=== PATIENT | female | born 1995 | race Caucasian/White ===

== ENCOUNTER → 2021-04-16 | Outpatient (CLI) | payer OTHER ==
--- NOTE | 2021-04-18 13:01 | ECHOF ---
Referral Reason:R07.9 chest pain MEASUREMENTS -------- HEIGHT: 160.0 cm WEIGHT: 81.6 kg BP: RVIDd: 2.7 cm (< 3.3) IVSd: 1.1 cm (0.6 - 1.1) LVIDd: 3.4 cm (3.9 - 5.3) LVPWd: 1.0 cm (0.6 - 1.1) IVSs: 1.3 cm LVIDs: 2.0 cm LVPWs: 1.7 cm LAESV Index (A-L): 18.48 ml/m Ao Diam: 2.7 cm (2.0 - 3.7) AV Cusp: 2.1 cm (1.5 - 2.6) LA Diam: 4.0 cm (2.7 - 3.8) MV EXCURSION: 17.202 mm (> 18.000) MV EF SLOPE: 80 mm/s (70 - 150) EPSS: 1.0 cm MV E Rubén: 0.88 m/s MV DecT: 197 ms MV A Rubén: 0.41 m/s MV E/A Ratio: 2.18 RAP: 5.00 mmHg RVSP: 22.27 mmHg FINDINGS -------- Sinus rhythm. This was a technically adequate study. The left ventricular size is normal. Left ventricular wall thickness is normal. Overall left vent ricular systolic function is normal with, an EF between 55 - 60 %. The diastolic filling pattern is normal for the age of the patient 10.51. The right ventricle is normal in size. Normal LA size by volume 22+/-6 ml/m2. The right atrial size is normal. Interatrial and interventricular septum intact. The aortic valve is trileaflet and appears structurally normal. There is no evidence of aortic regu rgitation. There is no evidence of aortic stenosis. No mitral regurgitation. Trace tricuspid regurgitation present. There is no evidence of pulmonary hypertension. The right ventricular systolic pressure, as measured by Doppler, is 22.27mmHg. There is no pulmonic regurgitation present. The aortic root size is normal. Normal inferior vena cava with normal inspiratory collapse consistent with estimated right atrial pre ssure of 5 mmHg. There is no pericardial effusion. CONCLUSIONS -------- 1. The left ventricular size is normal. 2. Left ventricular wall thickness is normal. 3. Overall left ventricular systolic function is normal with, an EF between 55 - 60 %. 4. The diastolic filling pattern is normal for the age of the patient 10.51 5. Trace tricuspid regurgitation present. MASONRY INSTRUCTOR: Georgina Lowry RDCS
== END | disposition home or self-care (01) ==
LOC: RADECHMAIN 13:51
PROVIDERS: ATTEND Family Medicine
DX: I07.1 Rheumatic tricuspid insufficiency (principal); R07.9 Chest pain, unspecified
CPT/HCPCS: 93306

== ENCOUNTER → 2021-09-03 | Outpatient (CLI) | payer OTHER | END | disposition home or self-care (01) | LOC: LABWHC1 18:03 | PROVIDERS: ATTEND Emergency Medicine | DX: Z20.822 Contact with and (suspected) exposure to COVID-19 (principal) | CPT/HCPCS: 87635 ==

== ENCOUNTER 2021-10-16 00:33 | Emergency (ER) | payer OTHER, MEDICAID ==
[2021-10-16 00:41] VITALS: BP 126/82; PULSE 79; RESP 18; TEMP 98
[2021-10-16] MEDS ORDERED: DEXAMETHASONE SOD PHOSPHATE 10 MG/ML 1 ML VIAL IM STA (01:10)
[2021-10-16] MEDS ORDERED: IBUPROFEN 600 MG STARTER PACK 4 TAB BTL PO STA (01:10)
[2021-10-16] MEDS ORDERED: AMOXICILLIN 500 MG CAP PO STA (01:46)
--- NOTE | 2021-10-16 01:48 | ED ---
General Adult HPI - General Chief complaint: ENT Stated complaint: Sore Throat Time Seen by Provider: 10/16/21 01:07 Source: patient Mode of arrival: ambulatory Limitations: no limitations - History of Present Illness Initial comments: 26 year-old female presents to the emergency department for evaluation of sore throat and cough for the last 4 days. States today while working she started to feel lightheaded. States that she has had strep in the past and this feels similar. She reports painful swallowing. Denies any fever or chills. Reports some nasal congestion. Reports non-productive cough. She did receive first COVID vaccine. Has not been taking any medication for her symptoms. Denies chance of , has an IUD. - Related Data Previous Rx's Medication Instructions Recorded Amoxicillin 500 mg PO BID #20 capsule 10/16/21 Allergies Allergy/AdvReac Type Severity Reaction Status Date / Time cefuroxime [From Ceftin] Allergy Rash/Hives Verified 10/16/21 00:41 Review of Systems ROS Statement: Those systems with pertinent positive or pertinent negative responses have been documented in the HPI. ROS Other: All systems not noted in ROS Statement are negative. Past Medical History Additional Past Medical History / Comment(s): scoliosis History of Any Multi-Drug Resistant Organisms: None Reported Past Surgical History: No Surgical Hx Reported Past Psychological History: Anxiety Smoking Status: Never smoker Past Alcohol Use History: Occasional Past Drug Use History: None Reported General Exam Limitations: no limitations General appearance: alert, in no apparent distress, other (This is a well- developed, well-nourished adult female in no acute distress.) Eye exam: Present: normal appearance, PERRL, EOMI. Absent: scleral icterus, conjunctival injection, periorbital swelling ENT exam: Present: mucous membranes moist. Absent: normal oropharynx (Pharyngeal erythema, bilateral tonsillar hypertrophy, bilateral tonsillar exudate. Uvula is midline, tonsils are symmetric.) Neck exam: Present: normal inspection. Absent: tenderness, meningismus, lym phadenopathy Respiratory exam: Present: normal lung sounds bilaterally. Absent: respiratory distress, wheezes, rales, rhonchi, stridor Cardiovascular Exam: Present: regular rate, normal rhythm, normal heart sounds. Absent: systolic murmur, diastolic murmur, rubs, gallop, clicks GI/Abdominal exam: Present: soft, normal bowel sounds. Absent: distended, tenderness, guarding, rebound, rigid Neurological exam: Present: alert, oriented X3, CN II-XII intact Psychiatric exam: Present: normal affect, normal mood Skin exam: Present: warm, dry, intact, normal color. Absent: rash Course Vital Signs 10/16/21 00:38 Temperature 98.0 F Pulse Rate 79 Respiratory 18 Rate Blood Pressure 126/82 O2 Sat by Pulse 99 Oximetry Medical Decision Making - Medical Decision Making 26-year-old female patient presents for evaluation of sore throat, cough, nasal congestion for the last 4 days. Physical examination did reveal bilateral tonsillar hypertrophy and exudate. No lymphadenopathy. She is afebrile, vital signs. Chest negative for influenza, RSV, and COVID-19. Tested negative for strep. She will be started on amoxicillin for tonsillitis. She is given a dose of Decadron and ibuprofen. States she develops a primary care physician for recheck in 1-2 days. Return parameters discussed in detail. She verbalizes understanding and is discharged in stable condition. My attending is Dr. Randall. - Lab Data Lab Results 10/16/21 10/16/21 Range/Units 00:51 00:51 Influenza Type A (PCR) Not Detected (Not Detectd) Influenza Type B (PCR) Not Detected (Not Detectd) RSV (PCR) Not Detected (Not Detectd) SARS-CoV-2 (PCR) Not Detected (Not Detectd) Group A Strep Rapid Negative (Negative) Disposition Clinical Impression: Tonsillitis Disposition: HOME SELF-CARE Condition: Good Instructions (If sedation given, give patient instructions): Tonsillitis (ED) Additional Instructions: Take medication as directed. Take Tylenol and Motrin for pain and fever control. Follow-up with your primary care physician for recheck in 1-2 days. Return for any new, worsening, or concerning symptoms. Prescriptions: Amoxicillin 500 mg PO BID #20 capsule Is patient prescribed a controlled substance at d/c from ED?: No Referrals: Alexandro Huber MD [Primary Care Provider] - 1-2 days Time of Disposition: 01:48
== END 2021-10-16 01:56 | disposition home or self-care (01) ==
LOC: EC 00:33
DX: J03.90 Acute tonsillitis, unspecified (principal); Z20.822 Contact with and (suspected) exposure to COVID-19; Z88.1 Allergy status to other antibiotic agents
CPT/HCPCS: 87081; 87430; 87636; 99283; 96372; J1100

== ENCOUNTER → 2022-08-15 | Outpatient (CLI) | payer OTHER ==
--- NOTE | 2022-08-15 22:06 | MR ---
EXAMINATION TYPE: MR brain wo con DATE OF EXAM: 08/15/2022 8:52 PM COMPARISON: MRI brain 01/25/2016. CLINICAL INDICATION:Female, 27 years old with history of H53.2; TECHNIQUE: Multi planar, multi sequence imaging was performed through the brain including: T1, T2, In version recovery, Diffusion weighted imaging, and gradient echo imaging. No gadolinium was given. FINDINGS: The posada-white junctions, ventricular system, and cisterns appear unremarkable. Midline structures sh ow no abnormality. Diffusion-weighted imaging shows no evidence of restricted diffusion. The suscepti bility weighted images do not reveal any evidence for micro-hemorrhage. The bone marrow signal is within normal limits. The paranasal sinuses and globes are unremarkable. IMPRESSION: 1. No evidence for demyelination. 2. No Evidence of intracranial mass or acute/subacute infarct.
== END | disposition home or self-care (01) ==
LOC: RADMRIMAIN 19:56
PROVIDERS: ATTEND Physician Assistant Medical
DX: H53.2 Diplopia (principal)
CPT/HCPCS: 70551

== ENCOUNTER → 2023-02-01 | Outpatient (CLI) | payer OTHER ==
--- NOTE | 2023-02-01 17:03 | P.SLEEP ---
History of Present Illness DATE: 02/01/2023 CONSULTATION/NEW PATIENT EVALUATION HISTORY OF PRESENT ILLNESS/SLEEP-WAKE EVALUATION: 27-year-old lady had been ev aluated in the sleep center for insomnia and possible obstructive sleep apnea hypopnea syndrome. SLEEP SCHEDULE: Usually sleep schedule from 1 AM until 7 AM on weekdays and from 2 AM until 11 AM on weekend. FALLING ASLEEP: Patient has problems with falling asleep, has TV set and bedroom. DURING SLEEP: Patient sleeps in different position with awakenings from sleep up to 3 times, with one episode of nocturia, symptoms of restless legs and awakenings with dry mouth. No history of hypnogogical hallucinations, sleep paralysis, or cataplexy. DURING THE DAY/WAKE STATE: In the morning patient wake up tired, has difficulties to pay attention, has problems with memory, concentration, depression, anxiety. Muse sleepiness scale is 16, which indicates sleepiness. Patient may take up to 3 naps late afternoon. PAST MEDICAL HISTORY: Headaches, acid reflux, depression, anxiety, tonsillitis. PAST SURGICAL HISTORY: Amonate tooth removed. MEDICATIONS: Lexapro 5 mg once a day, famotidine 20 mg once a day, loratidine 10 mg once a day. SOCIAL HISTORY: Positive for vaping, alcohol consumption occasional. FAMILY HISTORY: Hypertension, heart problems, sleep apnea, diabetes. REVIEW OF SYSTEMS: Difficulties to initiate sleep, multiple awakenings from sleep, sleepiness during the day. No fevers. No double vision. No recent chest pain. No shortness of breath. No abdominal pain. No bleeding episodes. No blood in urine. No seizure episodes. PHYSICAL EXAMINATION: GENERAL: A pleasant patient without any distress. VITAL SIGNS: BP 108/75, HR 63, RR 12, weight 167.2 pounds, height 5 foot 3 inches, body mass index 29.5. HEENT: PERRLA, EOMI. Evaluation of oropharynx showed tongue protrudes midline, low position of soft palate Mallampati 3. NECK: Supple. No JVD. Thyroid is not palpable. 14 inches in circumference. LUNGS: Clear to percussion and to auscultation. Good air exchange. No wheezing or rhonchi. HEART: S1, S2 regular. No murmurs, gallops or rubs. ABDOMEN: Soft and nontender. Bowel sounds are present. No organomegaly appreciated. EXTREMITIES: No clubbing or cyanosis. PERSONAL SERVICE REPRESENTATIVE: Awake, alert, and oriented x3. Cranial nerves 2 to 7 intact. There is no fasciculation or atrophy noted. No focal deficits observed. ASSESSMENT: 1. Difficulties to initiate sleep. Psychophysiological insomnia and insomnia secondary to anxiety. 2. Multiple awakenings from sleep, low position of soft palate Mallampati 3, excessive daytime sleepiness Muse Sleepiness Scale is 16, possible obstructive sleep apnea hypopnea syndrome. 3. Sleep delay syndrome. 4. Overweight, body mass and is 29.5. 5 history of depression. 6 . History of anxiety. 7. Headaches. 8. Acid reflux. 9 . History of tonsillitis. PLAN: 1. Polysomnography for evaluation of patient's breathing during sleep. 2. I discussed with patient psychological techniques for treatment of insomnia including stimulus control, paradoxical intentioned, worry time, no watching clock. 3. Bright light exposure in the morning to help moving sleep cycle to the earlier time. We discussed option to use light machine. 4. No driving if patient feels any sleepiness. Patient is aware of civil and criminal liability for unsafe driving. 5. Sleep hygiene with regular sleep time for at least 7.5-8 hours. 6. Watching weight. 7. Follow-up plan after reading sleep study. Thank you very much for referring this patient for consultation. Sincerely, Dylan Che MD, PhD, FAASM. Diplomat of [employer] [employer], Sleep Medicine Board by [employer] [employer] [place] [employer] Collaborative [employer] [facility] [place] Past Medical History Additional Past Medical History / Comment(s): scoliosis History of Any Multi-Drug Resistant Organisms: None Reported Past Surgical History: No Surgical Hx Reported Past Psychological History: Anxiety Smoking Status: Never smoker Past Alcohol Use History: Occasional Past Drug Use History: None Reported Medications and Allergies Home Medications Medication Instructions Recorded Confirmed Type Amoxicillin 500 mg PO BID #20 capsule 10/16/21 Rx Allergies Allergy/AdvReac Type Severity Reaction Status Date / Time cefuroxime [From Ceftin] Allergy Rash/Hives Verified 10/16/21 00:41 Sleep Note - Sleep Note Sleep Note: Temperature: Pulse Rate: Respiratory Rate: Blood Pressure: SpO2: Height: Weight: BMI: Neck Circumference:
== END ==
LOC: SLEEP 13:56
PROVIDERS: ATTEND Internal Medicine
DX: G47.30 Sleep apnea, unspecified (principal); K21.9 Gastro-esophageal reflux disease without esophagitis; R51.9 Headache, unspecified; Z98.890 Other specified postprocedural states; F41.9 Anxiety disorder, unspecified; Z99.89 Dependence on other enabling machines and devices; F32.A Depression, unspecified; E66.3 Overweight; Z68.29 Body mass index [BMI] 29.0-29.9, adult; Z88.8 Allergy status to other drugs, medicaments and biological substances
CPT/HCPCS: 99211